=== PATIENT | male | born 1960 | race Two or more races ===

== ENCOUNTER 2020-01-03 15:22 | Emergency (ER) | payer SELFPAY ==
[~2020-01-03] VITALS: Ht 170.2 cm; Wt 79.4 kg
[2020-01-03 15:42] VITALS: BP 136/77
[2020-01-03] MEDS ORDERED: DOXYCYCLINE 100 MG TAB/CAP PO ONE (17:00)
[2020-01-03] MEDS ORDERED: cefTRIAXone SOD 1,000 MG VL IM ONE (17:00)
== END 2020-01-03 17:56 | disposition home or self-care (01) ==
LOC: ER 15:22
DX: U07.1 COVID-19 (principal); J18.9 Pneumonia, unspecified organism
CPT/HCPCS: 71045; 96372; 99283; J0696